=== PATIENT | male | born 1960 | race Caucasian/White ===

== ENCOUNTER 2016-11-21 07:11 | Day surgery (SDC) | payer OTHER ==
[~2016-11-21] VITALS: Ht 165.1 cm; Wt 86.5 kg
[2016-11-21 08:24] VITALS: Ht 165.1 cm; Wt 86.5 kg
[2016-11-21 09:00] VITALS: BP 148/88; PULSE 70; RESP 24
[2016-11-21 09:28] VITALS: BP 149/87; PULSE 71; RESP 20
[2016-11-21 09:56] VITALS: BP 140/95; PULSE 66; RESP 18
[2016-11-21] MEDS ORDERED: FENTAnyl 50 MCG/ML VIAL ONE (09:56)
[2016-11-21] MEDS ORDERED: MIDAZOLAM 1 MG/ML 2 ML INJ ONE ×2 (09:56)
--- NOTE | 2016-11-22 05:08 | GILP ---
DATE OF PROCEDURE: 11/21/2016 NAME OF PROCEDURES: 1. Esophagogastroduodenoscopy and biopsy. 2. Colonoscopy. SURGEON: Jazlyn Calvert MD PREOPERATIVE DIAGNOSES: 1. Abdominal pain. 2. Rectal bleeding. POSTOPERATIVE DIAGNOSES 1. Gastritis. 2. Gastric mucosal biopsies were taken for Helicobacter pylori test. 3. Colonoscopy all the way to the cecum. 4. Poor prep with solid stool in the cecum and right colon making the exam very inadequate. 5. Internal hemorrhoids. INDICATION FOR THE PROCEDURE: Mr. Hao Schulz is a 55-year-old male patient who had upper abdomi nal pain, not responding to therapy. The patient also had rectal bleeding. He never had screening colonoscopy. The patient was scheduled for endoscopy and colonoscopy for further evaluation. The procedures and possible complications were well explained to the patient, he understood and cons ented to the procedures. DESCRIPTION OF PROCEDURE: Under the influence of fentanyl and Versed, the gastroscope was carefully introduced into the esophagus and under direct vision, it was advanced to the stomach and through t he pylorus into the duodenal bulb and descending duodenum. FINDINGS: ESOPHAGUS: The mucosa was normal. STOMACH: The patient had gastritis. Gastric mucosal biopsies were taken for H. pylori test. DUODENUM: Normal. The colonoscope was carefully introduced in the rectum and under direct vision, it was advanced all the way to the cecum. FINDINGS: The patient had poor prep with solid stool in the cecum and right colon making the exam v anushka inadequate. The patient was noted to have internal hemorrhoids. He tolerated the procedures very well and there was no complication from the procedures. At the end of the procedures, he was awake with stable vital signs and he was discharged home to the care of h is family. IMPRESSION: 1. Gastritis. 2. Gastric mucosal biopsies were taken for Helicobacter pylori test. 3. Colonoscopy all the way to the cecum. 4. Solid stool in the cecum and right colon making the exam very inadequate. 5. Internal hemorrhoids. PLAN: 1. Omeprazole 40 mg p.o. q.a.m. 2. Await H. pylori test report. 3. The patient will need repeat colonoscopy with better preparation within a year. Dictated By: JAZLYN JOVEL/AGUSTÍN Conf#: [id number] DID#: [id number]
== END 2016-11-21 10:30 | disposition home or self-care (01) ==
LOC: GIL 07:11
PROVIDERS: ATTEND Internal Medicine Gastroenterology
DX: R19.4 Change in bowel habit (principal); K29.70 Gastritis, unspecified, without bleeding; B96.81 Helicobacter pylori [H. pylori] as the cause of diseases classified elsewhere; K64.8 Other hemorrhoids
CPT/HCPCS: 43239; 45378; J2250; J3010; Z7610; 87081

== ENCOUNTER 2018-09-01 18:46 | Emergency (ER) | END 2018-09-02 01:00 | disposition home or self-care (01) ==